=== PATIENT | female | born 1995 | race African-American/Black ===

== ENCOUNTER 2016-11-25 12:44 | Emergency (ER) | payer MEDICAID ==
[~2016-11-25] VITALS: Ht 175.3 cm; Wt 63.0 kg
[~2016-11-25 12:44] MED LIST: COLACE100 MG ORAL; METROGEL-VAGINA70 G1 VAGIN; METRONIDAZOLE500 MG ORAL; NKM; [UNRECOGNIZED DRUG - OTHER] *
[2016-11-25 13:15] VITALS: BP 87/50
[2016-11-25] MEDS ORDERED: AMOXICILLIN500 MG ORAL (13:35)
[2016-11-25] MEDS ORDERED: PROMETHAZINE-D118 ML ORAL (13:35)
[2016-11-25 13:40] VITALS: BP 87/50
--- NOTE | 2016-11-25 16:18 | Emergency Room Report ---
History of Present Illness General Chief Complaint: Sore Throat Source: Patient Present Illness HPI The patient is a 21-year-old female without medical history presenting for sore throat, fevers, chills, and productive cough for the past 3 days. Patient denies any sick contacts or recent travel. Pain is described as a 4/10 dull ache and does not radiate. Pain worse with swallowing and cough. Patient denies other symptoms including nausea, vomiting, shortness of breath, wheezing , dizziness, neck pain or stiffness, rash Allergies: Coded Allergies: No Known Allergies (Unverified , 05/16/14) Patient History Past Medical History: see triage record Pertinent Family History: none Last Menstrual Period: 11/12/16 Now: No Reviewed Nursing Documentation: PMH: Agreed, PSxH: Agreed Nursing Documentation-PMH Past Medical History: No Stated History Review of Systems All Other Systems: negative except mentioned in HPI Physical Exam Vital Signs Date Time Temp Pulse Resp B/P Pulse Ox O2 Delivery O2 Flow Rate FiO2 11/25/16 13:05 99.7 87 14 87/50 99 Room Air Sp02 EP Interpretation: reviewed, normal General Appearance: no apparent distress, alert, GCS 15, non-toxic Head: normocephalic, atraumatic Eyes: bilateral eye PERRL, bilateral eye normal inspection ENT: hearing grossly normal, normal voice, uvula midline, tonsillar swelling, pharyngeal erythema, tonsillar exudate Neck: full range of motion, supple/symm/no masses Respiratory: chest non-tender, lungs clear, normal breath sounds, no wheezing, speaking full sentences Cardiovascular #1: regular rate, rhythm, no edema Musculoskeletal: back normal, gait/station normal, normal range of motion, non- tender Neurologic: alert, oriented x3, responsive, motor strength/tone normal, sensory intact, speech normal Skin: normal color, no rash, warm/dry, well hydrated Lymphatic: adenopathy Medical Decision Making PA Attestation Dr. Mejia is my supervising physician. Patient management was discussed with my supervising physician Diagnostic Impression: Primary Impression: Pharyngitis ER Course The patient is a 21-year-old female presenting with sore throat and fever Differential diagnosis include but not limited to pharyngitis, sinusitis, AOM, bronchitis, PNA Physical exam: Afebrile. No apparent distress HEENT exam: There is bilateral tonsillar edema, erythema, and exudate. Uvula midline. Moist mucous membranes. There is bilateral cervical lymphadenopathy. Lungs are clear to auscultation bilaterally Skin is warm and dry. No rash The patient will be discharged home with a prescription for amoxicillin and is given ER precautions. Patient will followup with primary care Last Vital Signs Date Time Temp Pulse Resp B/P Pulse Ox O2 Delivery O2 Flow Rate FiO2 11/25/16 13:40 99.7 87 14 87/50 99 Room Air Status: improved Disposition: HOME, SELF-CARE Condition: Improved Scripts D-Methorphan Hb/Prometh Hcl* (PROMETHAZINE-DM SYRUP*) 118 Ml Syrup 5 ML ORAL Q6H Y for For Cough, #118 ML 0 Refills Prov: BOZENA HYDE 11/25/16 Amoxicillin* (AMOXIL*) 500 Mg Capsule 500 MG ORAL Q12HR, #20 CAP Prov: BOZENA HYDE.A. 11/25/16 Referrals: NOT CHOSEN [facility]/MD,REFERRING (PCP) Patient Instructions: Pharyngitis Additional Instructions: I discussed my findings with the patient. All questions and concerns have been answered. Treatment and medication compliance have been addressed. I advised the patient that they need to follow up with PMD in 3-5 days. Return to ED if pain remains or worsens, cough worsens or remains, you notice blood in your sputum, you notice wheezing, you experience a fever, or if needed for any reason. Patient verbalized understanding of discharge instructions. BOZENA HYDE Nov 25, 2016 16:18
== END 2016-11-25 13:45 | disposition home or self-care (01) ==
LOC: EMR 13:44
DX: J02.9 Acute pharyngitis, unspecified (principal)
CPT/HCPCS: 99284